=== PATIENT | male | born 1955 | race Two or more races ===

== ENCOUNTER → 2017-04-12 | Day surgery (SDC) | payer MEDICARE ==
[~2017-04-12] MED LIST: ACETAMINOPHEN PO; ACETAMINOPHEN325 MG PO; ACETAMINOPHEN500 M3 PO; ACUVAIL1 EACH OD; AGGRENOX PO; ALBUTEROL MININEB NEB; AMITRIPTYLINE H25 MG PO; AMLODIPINE BESY10 MG PO; AMLODIPINE BESYL5 MG PO; AMOXICILLIN PO; ASPIR-TRIN325 MG PO; ASPIRIN; ASPIRIN81 MG PO; AVANDIA; BUMETANIDE1 MG PO; BUMEX2 MG PO; CALCIUM ACETAT667 M2 PO; CARVEDILOL25 MG PO; CATAPRES0.1 MG PO; CIPRO PO; CLOPIDOGREL75 MG PO; COREG; COREG PO; COREG6.25 MG PO; CYMBALTA PO; CYMBALTA30 MG PO; DOCUSATE SODIU100 MG PO; FERRO-TIME325 MG PO; FERROUS GLUCON324 MG PO; FLOMAX0.4 M1 PO; FUROSEMIDE40 MG PO; GLUCOPHAGE XR500 MG; GLUCOTROL XL; HCTZ; HUMALOG MI100 UNIT/4 SQ; HUMALOG100 U/M2 SUBQ; HUMULIN R100 UNIT/1 SUBQ; HYDRALAZINE HCL50 MG PO; IMDUR-ER30 M1 PO; LANTUS SOLOSTAR3 ML PO; LANTUS100 U/ML SUBQ; LANTUS100 UNITS/ SUBQ; LASIX PO; LASIX20 MG PO; LEVAQUIN750 MG PO; LIPITOR; LIPITOR20 MG PO; LISINOPRIL; LISINOPRIL20 MG PO; LOPRESSOR; LORTAB 7.5-3251 EACH PO; METFORMIN; NEO-POLYMIXIN-DE5 ML OD; NITROGLYGERIN0.4 MG SL; NON-ASA500 M1 PO; NORVASC PO; PHENERGAN PO; PHOSLO667 M1 PO; RENVELA800 MG PO; SOD BICARBONATE PO; SOF-LAX100 MG PO; TESSALON PERLE100 M1 PO; VICODIN 5/1 TAB 5/50 PO; VITAMIN D50000 UNIT PO; ZESTRIL5 MG PO; ZOCOR PO; ZOCOR80 MG PO; [UNRECOGNIZED DRUG - OTHER]; [UNRECOGNIZED DRUG - OTHER]
--- NOTE | ~2017-04-12 | OR ---
Unit #: [id number] #: [id number] Patient: EZEQUIEL ORTIZ [id number] [address] [address] [id number] MR#: [id number] NAME: EZEQUIEL ORTIZ ROOM: Date of Procedure: 04/12/2017 Admission Date: 04/12/2017 Surgeon: Phillip Escoto M.D. : 1955 Attending Physician: Phillip Escoto M.D. Primary Care Physician: Keith Neely Jr., M.D. OPERATIVE REPORT PROCEDURE PERFORMED Colonoscopy with multiple snare polypectomy. INDICATIONS FOR PROCEDURE A 62-year-old gentleman with average risk of colorectal cancer, needs for screening colonoscopy. MEDICATIONS Monitored anesthesia. POSTOPERATIVE FINDINGS Multiple polyps, 2 in transverse colon, 1 in sigmoid colon, 2 in rectum, they were all snared and sent for histopathology. They varying in size from 4 to 6 mm. PLAN Repeat colonoscopy in 3 years. Followup on the pathology report. Stool softeners to continue. DESCRIPTION OF PROCEDURE The patient was explained of the procedure, risks, and benefits along with risks and benefits of anesthesia. He was brought to the endoscopy room. Propofol anesthesia was given. Rectal exam was done, which was normal. Colonoscope was lubricated, passed up the rectum, advanced under direct vision all the way to the cecum. Cecum was identified by ileocecal valve and appendiceal orifice. I then started to pull the scope out, multiple polyps were seen and removed as described. I retroflexed in the rectum, internal hemorrhoids noted. Gently, the scope was pulled out. He tolerated it well. No major complications were seen. Dictated by... Maryan Christine/jordyn TD: 04/12/2017 14:49 JOB #: [id number] Unit #: [id number] #: [id number] Patient: EZEQUIEL ORTIZ OPERATIVE REPORT Page 1 of 1 X Phillip Escoto MD PROCEDURE OPERATIVE NOTE
== END | disposition home or self-care (01) ==
LOC: COPS 09:12
DX: Z12.11 Encounter for screening for malignant neoplasm of colon (principal); D12.3 Benign neoplasm of transverse colon; D12.5 Benign neoplasm of sigmoid colon; K62.1 Rectal polyp; K64.8 Other hemorrhoids; G89.29 Other chronic pain; M54.9 Dorsalgia, unspecified; E11.9 Type 2 diabetes mellitus without complications; I25.10 Atherosclerotic heart disease of native coronary artery without angina pectoris; I11.0 Hypertensive heart disease with heart failure; I50.9 Heart failure, unspecified; I25.2 Old myocardial infarction; K21.9 Gastro-esophageal reflux disease without esophagitis; N18.6 End stage renal disease; Z88.1 Allergy status to other antibiotic agents; Z90.49 Acquired absence of other specified parts of digestive tract; Z98.890 Other specified postprocedural states; Z96.642 Presence of left artificial hip joint; Z95.5 Presence of coronary angioplasty implant and graft; Z99.2 Dependence on renal dialysis; Z79.82 Long term (current) use of aspirin; Z79.4 Long term (current) use of insulin; Z79.899 Other long term (current) drug therapy
CPT/HCPCS: 82947; 88305